=== PATIENT | male | born 1995 | race American Indian/Alaskan Native ===

== ENCOUNTER 2018-12-04 17:23 | Emergency (ER) | payer SELFPAY | END 2018-12-04 17:28 | disposition left against medical advice (07) | LOC: ED 17:23 | DX: M54.9 Dorsalgia, unspecified (principal); Z53.21 Procedure and treatment not carried out due to patient leaving prior to being seen by health care provider ==

== ENCOUNTER 2019-12-01 09:26 | Inpatient (IN) | payer OTHER ==
[2019-12-01 10:25] LABS: Basophils % (Auto) 0.5 % (0.0-1.8); Eosinophils # (Auto) 0.1 K/mm3 (0.0-0.4); Eosinophils % (Auto) 2.1 % (0.0-4.3); Hematocrit 42.7 % (35.5-45.6); Hemoglobin 13.9 gm/dl (11.8-15.2); Lymphocytes # (Auto) 1.4 K/mm3 (1.2-5.4); Lymphocytes % (Auto) 34.4 % (13.4-35.0); Mean Corpuscular HGB Conc 33 % (32-34); Mean Corpuscular Volume 82 fl (84-94); Monocytes # (Auto) 0.3 K/mm3 (0.0-0.8); Monocytes % (Auto) 7.8 % (0.0-7.3); Platelet Count 213 K/mm3 (140-440); Red Blood Count 5.21 M/mm3 (3.65-5.03); Red Cell Distribution Width 14.6 % (13.2-15.2)
[2019-12-01 10:44] LABS: Alanine Aminotransferase 8 units/L (7-56); Albumin 4.8 g/dL (3.9-5); BUN/Creatinine Ratio 10; Blood Urea Nitrogen 8 mg/dL (9-20); Calcium 9.9 mg/dL (8.4-10.2); Hemolysis Index 10
--- NOTE | 2019-12-01 10:52 | XRay Report ---
CHEST 1 VIEW 12/01/2019 9:43 AM INDICATION / CLINICAL INFORMATION: Cough. COMPARISON: None available. FINDINGS: SUPPORT DEVICES: None. HEART / MEDIASTINUM: No significant abnormality. LUNGS / PLEURA: There is a large right pneumothorax without significant mediastinal shift. Left lung appears clear. ADDITIONAL FINDINGS: No significant additional findings. IMPRESSION: 1. Large right pneumothorax. Critical result: Findings discussed with Ewa Cheema at 9:47 AM central time on 12/01/2019. Signer Name: Francisco York MD Signed: 12/01/2019 10:47 AM Workstation Name: [id number]
--- NOTE | 2019-12-01 11:00 | Emergency Department Report ---
ED Chest Pain HPI - General Chief Complaint: Dyspnea/Respdistress Stated Complaint: SOB/LOW O2 SAT Time Seen by Provider: 12/01/19 10:57 Source: patient Mode of arrival: Ambulatory Limitations: No Limitations - History of Present Illness Initial Comments: Mr. Guan is a healthy 24-year-old male without significant past medical history with exception of tobacco and marijuana use who presents with sudden shortness of breath 8:00 this morning. He has right-sided chest pain. Shortness of breath. Moderate pain. MD Complaint: chest pain, other (Severe shortness of breath) -: Sudden Onset: during rest Pain Location: right chest Severity: severe Quality: aching Consistency: constant Improves With: nothing Worsens With: inspiration - Related Data Allergies Allergy/AdvReac Type Severity Reaction Status Date / Time No Known Allergies Allergy Verified 12/04/18 17:26 Heart Score - HEART Score History: Slightly suspicious EKG: Normal Age: < 45 Risk factors: No known risk factors Troponin: < normal limit HEART Score: 0 ED Review of Systems ROS: Stated complaint: SOB/LOW O2 SAT Other details as noted in HPI Comment: All other systems reviewed and negative Respiratory: shortness of breath Cardiovascular: chest pain ED Past Medical Hx - Past Medical History Previous Medical History?: No - Surgical History Past Surgical History?: No - Social History Smoking Status: Current Every Day Smoker Substance Use Type: Marijuana ED Physical Exam - General Limitations: No Limitations General appearance: alert, in no apparent distress - Head Head exam: Present: atraumatic, normocephalic - Eye Eye exam: Present: normal appearance - ENT ENT exam: Present: mucous membranes moist - Neck Neck exam: Present: normal inspection - Respiratory Respiratory exam: Present: decreased breath sounds (Decreased breath sounds on the right). Absent: wheezes, rales, rhonchi - Cardiovascular Cardiovascular Exam: Present: regular rate, normal rhythm, normal heart sounds. Absent: systolic murmur, diastolic murmur, rubs, gallop - GI/Abdominal GI/Abdominal exam: Present: soft, normal bowel sounds. Absent: distended, tenderness, guarding, rebound - Rectal Rectal exam: Present: deferred - Extremities Exam Extremities exam: Present: normal inspection - Back Exam Back exam: Present: normal inspection - Neurological Exam Neurological exam: Present: alert, oriented X3 - Psychiatric Psychiatric exam: Present: normal affect, normal mood - Skin Skin exam: Present: warm, dry, intact, normal color. Absent: rash ED Course Vital Signs 12/01/19 12/01/19 12/01/19 09:32 11:52 11:55 Temperature 97.9 F 98.2 F Pulse Rate 63 82 Respiratory 20 18 18 Rate Blood Pressure 129/77 Blood Pressure 144/87 [Right] O2 Sat by Pulse 97 100 Oximetry - Chest Tube Chest Tube Location: fifth interspace Chest Tube Procedure: betadine prep Anesthesia: 1% Lidocaine Volume Anesthetic (ccs): 10 Vasquez of Air Clarke: Yes Number of Attempts: 1 Tube Drainage: none Tube Sutured to Skin: Yes Post Procedure CXR?: Yes Progress: Patient provided written informed consent witnessed by nurse. Complication: apical catheter which was retracted. ED Medical Decision Making - Lab Data Result diagrams: 12/01/19 09:57 12/01/19 09:57 - Radiology Data Radiology results: report reviewed CT angios chest: No pulmonary embolism, airspace opacity in the right lower lobe linear consolidation along the major fissure pleural catheter is in the superiormost right apex no diet no aortic dissection, airspace opacity may represent reexpansion pulmonary edema or pneumonia - Medical Decision Making Mr. Guan presents with spontaneous pneumothorax treated with thoracostomy. CT angios reveals reexpansion pulmonary edema versus pneumonia. Antibiotics initiated in the emergency department. Consulted Dr. Ambriz general surgeon. Admitted to the hospital service. Critical care attestation.: If time is entered above; I have spent that time in minutes in the direct care of this critically ill patient, excluding procedure time. ED Disposition Clinical Impression: Spontaneous pneumothorax Disposition: - OP ADMIT IP TO THIS HOSP Is pt being admited?: Yes Does the pt Need Aspirin: No Condition: Stable
[2019-12-01] MEDS ORDERED: LIDOCAINE (1%) 10 MG/1 ML VIAL 20 ML MDV INFILTRATI ONE (11:08)
[2019-12-01] MEDS ORDERED: MORPHINE 4 MG/1 ML INJ IV ONE ×2 (11:32→11:45)
[2019-12-01] MEDS ORDERED: ONDANSETRON 4 MG/2 ML INJ IV ONE (11:32)
[2019-12-01] MEDS ORDERED: ONDANSETRON 4 MG/2 ML INJ ONE (11:33)
[2019-12-01] MEDS ORDERED: MORPHINE 4 MG/1 ML INJ ONE (11:33)
--- NOTE | 2019-12-01 11:43 | History and Physical Report ---
History of Present Illness Chief complaint: My chest hurts on the right side and it is hard to breathe History of present illness: 24 YO Male with Nicotine Dependence presents to ED for evaluation. Patient states that he was in his usual state of health at bedtime around 2230 hrs. Patient states that he awoke from sleep around 0800 hrs. this morning and experienced acute onset shortness of breath and right-sided pleuritic chest pain. Patient states that he felt "like I could not catch my breath". Patient transported to [facility] via private vehicle for further evaluation and care. Patient seen and evaluated in the emergency department. Lab and imaging studies reviewed. Patient underwent CTA of the chest as well as chest x-ray and was found to have a large right pneumothorax. A right-sided chest tube was placed in the emergency department. Surgery team consult placed. Patient admitted to medical floor for further evaluation and care due to high risk of pulmonary compensation. Patient denies fever, chills, palpitations, syncope, trauma, recent ill contacts. No prior admission for review. No medication listed for reconciliation at time of admission. Past History Past Medical History: No medical history, other (Reviewed) Past Surgical History: No surgical history, Other (Reviewed) Social history: single, smoking Family history: hypertension Medications and Allergies Allergies Allergy/AdvReac Type Severity Reaction Status Date / Time No Known Allergies Allergy Verified 12/04/18 17:26 Review of Systems Constitutional: no weight loss, no weight gain, no fever, no chills Ears, nose, mouth and throat: no ear pain, no ear discharge, no tinnitis, no decreased hearing, no nasal discharge Cardiovascular: no chest pain, no orthopnea, no palpitations, no rapid/irregular heart beat, no edema, no syncope Respiratory: no cough with sputum, no excessive sputum, no hemoptysis, no shortness of breath Gastrointestinal: no abdominal pain, no nausea, no vomiting, no diarrhea, no constipation Genitourinary Male: no dysuria, no hematuria, no flank pain, no discharge, no urinary frequency Rectal: no pain, no incontinence, no bleeding Musculoskeletal: no neck stiffness, no neck pain, no shooting arm pain, no arm numbness/tingling, no low back pain Integumentary: no rash, no pruritis, no redness, no sores, no wounds Neurological: no head injury, no transient paralysis, no paralysis, no weakness, no numbness, no tingling Psychiatric: no anxiety, no memory loss, no change in sleep habits, no sleep disturbances, no insomnia, no hypersomnia, no change in appetite Endocrine: no cold intolerance, no heat intolerance, no polyphagia, no excessive thirst, no polydipsia, no polyuria, no excessive sweating Hematologic/Lymphatic: no easy bruising, no easy bleeding, no lymphadenopathy, no lymphedema Allergic/Immunologic: no urticaria, no allergic rhinitis, no anaphylaxis, no angioedema Exam - Constitutional Vitals: Temp Pulse Resp BP Pulse Ox 97.9 F 63 20 129/77 97 12/01/19 09:32 12/01/19 09:32 12/01/19 09:32 12/01/19 09:32 12/01/19 09:32 General appearance: Present: mild distress - EENT Eyes: Present: PERRL ENT: hearing intact, clear oral mucosa - Neck Neck: Present: supple, normal ROM - Respiratory Respiratory effort: normal Respiratory: right: diminished - Cardiovascular Heart Sounds: Present: S1 & S2. Absent: rub, click - Extremities Extremities: pulses symmetrical, No edema Peripheral Pulses: within normal limits - Abdominal General gastrointestinal: Present: soft, non-tender, non-distended, normal bowel sounds Male genitourinary: Present: normal - Integumentary Integumentary: Present: clear, warm, dry - Musculoskeletal Musculoskeletal: gait normal, strength equal bilaterally - Psychiatric Psychiatric: appropriate mood/affect, intact judgment & insight - Neurologic Neurologic: CNII-XII intact, moves all extremities Results - Labs CBC & Chem 7: 12/01/19 09:57 12/01/19 09:57 Labs: Abnormal lab results 12/01/19 12/01/19 Range/Units 09:57 09:57 WBC 4.1 L (4.5-11.0) K/mm3 RBC 5.21 H (3.65-5.03) M/mm3 MCV 82 L (84-94) fl MCH 27 L (28-32) pg [place] % (Auto) 7.8 H (0.0-7.3) % BUN 8 L (9-20) mg/dL Assessment and Plan - Patient Problems (1) Pneumothorax on right Current Visit: Yes Status: Acute Plan to address problem: Chest x-ray, CTA chest, right chest tube in place, surgery team consulted. (2) Nicotine dependence unspecified, with withdrawal Current Visit: Yes Status: Acute Qualifiers: Nicotine product type: cigarettes Qualified Code(s): F17.213 - Nicotine dependence, cigarettes, with withdrawal Plan to address problem: Smoking cessation counseling, behavior change counseling, supportive care. +15 minutes. (3) DVT prophylaxis Current Visit: Yes Status: Acute Plan to address problem: SCD to bilateral lower extremities while in bed patient is ambulatory.
--- NOTE | 2019-12-01 11:54 | XRay Report ---
CHEST 1 VIEW 12/01/2019 10:48 AM INDICATION / CLINICAL INFORMATION: Tube thoracostomy. COMPARISON: Chest x-ray done earlier on 12/01/2019 FINDINGS: SUPPORT DEVICES: Right chest tube has been placed. HEART / MEDIASTINUM: No significant abnormality. LUNGS / PLEURA: Right lung has reexpanded significantly, with only trace residual right pneumothorax. Left lung remains clear. ADDITIONAL FINDINGS: No significant additional findings. IMPRESSION: 1. Significant reexpansion of the right lung following right chest tube placement, with only trace re sidual pneumothorax. Signer Name: Francisco York MD Signed: 12/01/2019 11:50 AM Workstation Name: [id number]
[2019-12-01] MEDS ORDERED: ONDANSETRON 4 MG/2 ML INJ IV PRN (11:56)
[2019-12-01] MEDS ORDERED: ACETAMINOPHEN 325 MG TAB PO PRN (11:56)
[2019-12-01] MEDS ORDERED: HYDROmorphone 1 MG/1 ML INJ ONE (12:10)
--- NOTE | 2019-12-01 13:26 | Consultation ---
History of Present Illness Consult date: 12/01/19 Reason for consult: other (Chest pain shortness of breath) Chief complaint: Pneumothorax - History of present illness History of present illness: 24-year-old male with a past medical history of tobacco dependence who presents to the emergency room with acute onset right-sided chest pain and shortness of breath. He states that he was smoking a cigarette this morning, and all of a sudden had sharp right-sided chest pain which she has never experienced before. He states that this was associated with shortness of breath and so he presented to the hospital. In the emergency room, he was found to have a spontaneous right-sided pneumothorax on chest x-ray. A small bore chest tube was inserted by the ER physician with resolution of the pneumothorax on repeat chest x-ray. Surgery is consulted to manage the chest tube. At this time the patient states his pain is a 9 out of 10 in severity. The pain increased after chest tube insertion. His shortness of breath is improved. No fevers, chills, chest pain, shortness of breath. He denies trauma to the area. Past History Past Medical History: No medical history Past Surgical History: Other (Foot surgery) Social history: smoking (6 cigarettes a day and daily marijuana) Family history: no significant family history Medications and Allergies Allergies Allergy/AdvReac Type Severity Reaction Status Date / Time No Known Allergies Allergy Verified 12/04/18 17:26 Active Meds: Active Medications Acetaminophen (Tylenol) 650 mg PO Q4H PRN PRN Reason: Pain MILD(1-3)/Fever >100.5/YUAN Ondansetron HCl (Zofran) 4 mg IV Q8H PRN PRN Reason: Nausea And Vomiting Sodium Chloride (Sodium Chloride Flush Syringe 10 Ml) 10 ml IV BID CARLOS Sodium Chloride (Sodium Chloride Flush Syringe 10 Ml) 10 ml IV PRN PRN PRN Reason: LINE FLUSH Review of Systems All systems: negative (10 point review of systems was performed and negative except for that listed in HPI) Exam Vital Signs Temp Pulse Resp BP Pulse Ox 97.9 F 63 20 129/77 97 12/01/19 09:32 12/01/19 09:32 12/01/19 09:32 12/01/19 09:32 12/01/19 09:32 Narrative exam: Gen.: Awake, alert, oriented 3. No apparent distress ENT: No scleral icterus or conjunctival pallor CV: S1, S2 present Respiratory: Diminished breath sounds on the right. No wheezes, rales, rhonchi. There is a right-sided small bore chest tube in place with scant serosanguineous drainage in the tubing. The chest tube is set to -30 cm of water and on suction via Pleur-evac. There is no tidling or respiratory variation. There is no air leak present. The dressing is clean, dry, intact. No crepitus of the chest wall. Extremities: No clubbing, cyanosis, edema Results - Labs 12/01/19 09:57 12/01/19 09:57 Abnormal lab results 12/01/19 12/01/19 Range/Units 09:57 09:57 WBC 4.1 L (4.5-11.0) K/mm3 RBC 5.21 H (3.65-5.03) M/mm3 MCV 82 L (84-94) fl MCH 27 L (28-32) pg [place] % (Auto) 7.8 H (0.0-7.3) % BUN 8 L (9-20) mg/dL Diabetes panel 12/01/19 Range/Units 09:57 Sodium 138 (137-145) mmol/L Potassium 4.2 (3.6-5.0) mmol/L Chloride 102.1 (98-107) mmol/L Carbon Dioxide 22 (22-30) mmol/L BUN 8 L (9-20) mg/dL Creatinine 0.8 (0.8-1.5) mg/dL Glucose 87 (75-100) mg/dL Calcium 9.9 (8.4-10.2) mg/dL AST 14 (5-40) units/L ALT 8 (7-56) units/L Alkaline Phosphatase 108 (35-129) units/L Total Protein 7.5 (6.3-8.2) g/dL Albumin 4.8 (3.9-5) g/dL Calcium panel 12/01/19 Range/Units 09:57 Calcium 9.9 (8.4-10.2) mg/dL Albumin 4.8 (3.9-5) g/dL Pituitary panel 12/01/19 Range/Units 09:57 Sodium 138 (137-145) mmol/L Potassium 4.2 (3.6-5.0) mmol/L Chloride 102.1 (98-107) mmol/L Carbon Dioxide 22 (22-30) mmol/L BUN 8 L (9-20) mg/dL Creatinine 0.8 (0.8-1.5) mg/dL Glucose 87 (75-100) mg/dL Calcium 9.9 (8.4-10.2) mg/dL Adrenal panel 12/01/19 Range/Units 09:57 Sodium 138 (137-145) mmol/L Potassium 4.2 (3.6-5.0) mmol/L Chloride 102.1 (98-107) mmol/L Carbon Dioxide 22 (22-30) mmol/L BUN 8 L (9-20) mg/dL Creatinine 0.8 (0.8-1.5) mg/dL Glucose 87 (75-100) mg/dL Calcium 9.9 (8.4-10.2) mg/dL Total Bilirubin 0.50 (0.1-1.2) mg/dL AST 14 (5-40) units/L ALT 8 (7-56) units/L Alkaline Phosphatase 108 (35-129) units/L Total Protein 7.5 (6.3-8.2) g/dL Albumin 4.8 (3.9-5) g/dL - Imaging Chest x-ray: report reviewed, image reviewed CT scan - chest: report reviewed, image reviewed Assessment and Plan 24 yo M with R spontaneous PTX s/p chest tube in ER CXR 12/01/19 - R large PTX CXR 12/01/19 (s/p chest tube) - resolution of R PTX CT chest - right chest tube in place with re-expansion of right lung. Per radiology read, airspace opacities noted in the right lower lobe, could represent reexpansion pulmonary edema versus pneumonia. Plan: 1. Chest tube to -[id number] suction 2. prn pain control -Toradol IV and p.o. Buckner 3. incentive spirometry 10 times per hour 4. repeat CXR in am. 5. OOB/ambulate 6. supplemental O2 as needed 7. Smoking cessation discussed with patient The plan was discussed in great detail with the patient. Will follow-up in a.m. Thank you, please call with questions.
--- NOTE | 2019-12-01 13:38 | Cat Scan Report ---
CTA of the chest with 3D Reconstruction Indication: ,thoracostomy pain Technique: TECHNIQUE: Axial CT images were obtained through the chest after injection of 100 cc of Omnipaque 350 IV contrast. 3 plane MIP reconstructions were produced. All CT scans at this location are performed using CT dose reduction for ALARA by means of automated exposure control. COMPARISON: Chest radiograph performed earlier today Automatic exposure control was utilized in an attempt to reduce radiation dose. Findings: Pulmonary arteries: The main pulmonary artery and right and left pulmonary artery branches fill satis factorily with contrast. No pulmonary embolus is seen. Lungs: There is airspace opacity noted in the right lower lobe predominantly peripherally located. Th ere is some linear consolidation along the major fissure likely representing focal atelectasis there is airspace opacity noted in the right upper lobe adjacent to the minor fissure. There is some volume loss in the right upper lobe with elevation of the minor fissure. Right pleural catheter is noted th e tip is in the superior most right apex. There is very minimal residual pneumothorax with only a tra ce amount of pleural air on the right. The left lung is clear. Mediastinum: Heart size is normal. No adenopathy is seen. Aorta: Normal in diameter. No dissection seen within limits of this exam. There is subcutaneous air on the right Impression: Right pleural catheter is noted. There is no significant residual pneumothorax. Only a trace amount o f pleural air remains. There is some volume loss in the right upper lobe with airspace opacity along the minor fissure. Ther e is airspace opacity noted in the right lower lobe which likely represents reexpansion pulmonary radha ma but could represent pneumonia. Signer Name: Kushal Jameson MD Signed: 12/01/2019 1:34 PM Workstation Name: [id number]
[2019-12-01] MEDS ORDERED: levoFLOXacin 750 MG TAB PO STA (13:47)
[2019-12-01] MEDS ORDERED: levoFLOXacin 750 MG TAB ONE (14:19)
[2019-12-01 14:21] LABS: BUN/Creatinine Ratio 10; Blood Urea Nitrogen 8 mg/dL (9-20); Calcium 9.9 mg/dL (8.4-10.2); Hemolysis Index 10
[2019-12-01] MEDS ORDERED: HYDROcodone/ACETAMINOPHEN 5-325 MG TAB PO PRN (15:00)
[2019-12-01] MEDS: KETOROLAC 30 MG/1 ML INJ IV SCH (16:50)
[2019-12-01 17:32] LABS: Basophils % (Auto) 0.1 % (0.0-1.8); Eosinophils % (Auto) 0.3 % (0.0-4.3); Lymphocytes # (Auto) 1.6 K/mm3 (1.2-5.4); Lymphocytes % (Auto) 11.6 % (13.4-35.0); Mean Corpuscular HGB Conc 32 % (32-34); Mean Corpuscular Volume 82 fl (84-94); Monocytes # (Auto) 1.1 K/mm3 (0.0-0.8); Monocytes % (Auto) 7.8 % (0.0-7.3); Platelet Count 229 K/mm3 (140-440); Red Blood Count 5.34 M/mm3 (3.65-5.03); Red Cell Distribution Width 14.6 % (13.2-15.2)
[2019-12-01 17:55] LABS: INR 1.33 (0.87-1.13); Partial Thromboplastin Time 34.4 Sec. (24.2-36.6)
[2019-12-01] MEDS ORDERED: HYDROmorphone 2 MG/1 ML INJ IV ONE (18:05)
[2019-12-02] MEDS: KETOROLAC 30 MG/1 ML INJ IV SCH ×4 (01:35→11:32)
[2019-12-02 08:33] VITALS: BP 141/94
--- NOTE | 2019-12-02 09:14 | XRay Report ---
CHEST 1 VIEW INDICATION: R PTX. COMPARISON: Previous day. FINDINGS: Support devices: Removal of smallbore right-sided chest tube. No pneumothorax. Decreasing right subcu taneous air. Heart: Within normal limits. Lungs/Pleura: No acute air space or interstitial disease. Additional findings: None. IMPRESSION: No pneumothorax status post chest tube removal. Signer Name: Gomez Kaye MD Signed: 12/02/2019 9:09 AM Workstation Name: [id number]
--- NOTE | 2019-12-02 11:58 | Progress Note ---
Assessment and Plan 24 yo M with R spontaneous PTX s/p chest tube in ER CXR 12/01/19 - R large PTX CXR 12/01/19 (s/p chest tube) - resolution of R PTX CT chest - right chest tube in place with re-expansion of right lung. Per radiology read, airspace opacities noted in the right lower lobe, could represent reexpansion pulmonary edema versus pneumonia. CXR 12/02/2019 -resolution of pneumothorax. Chest tube located outside of right thorax, adjacent to the skin. Plan: 1. Chest tube was already pulled out for an unknown period of time. 7 A.m. chest x-ray showed no pneumothorax. Will repeat another chest x-ray now and if stable, the patient may be discharged home. 2. Patient may take [id number] pain control such as Tylenol or ibuprofen if needed upon discharge 3. incentive spirometry 10 reps, 3 times per day. I personally instructed the patient and educated him on the use of the incentive spirometer 4. OOB/ambulate 5. Smoking cessation discussed with patient again. I explained to the patient that if he continues to smoke cigarettes or marijuana, it is highly likely that he will experience another pneumothorax. I also advised him to avoid being in contact with secondhand smoke. If patient is discharged, he was instructed to return to the emergency room if he experiences recurrent right-sided chest pain and shortness of breath. Discussed with Dr. High and patient's RN Thank you, please call with questions. Subjective Date of service: 12/02/19 Narrative: Patient seen and examined. The patient was very agitated this morning stating that he wanted to go home. He is feeling better. He denies shortness of breath. His pain is much improved. No fevers, chills, chest pain. He has not been using his nasal cannula. Objective Vital Signs - 12hr 12/02/19 12/02/19 12/02/19 04:00 04:22 07:39 Temperature 98.2 F Pulse Rate 58 L 44 L Pulse Rate [ Left Radial] Pulse Rate [ Right Radial] Respiratory 16 Rate Blood Pressure 118/65 O2 Sat by Pulse 100 100 Oximetry 12/02/19 12/02/19 12/02/19 07:43 10:38 11:32 Temperature 98.1 F Pulse Rate Pulse Rate [ 81 Left Radial] Pulse Rate [ 81 Right Radial] Respiratory 18 16 16 Rate Blood Pressure 141/94 O2 Sat by Pulse 97 Oximetry - General physical appearance Narrative Exam: General: Awake, alert, oriented x3. No apparent distress CV: S1, S2 present Respiratory: No audible wheezes. There is no chest wall crepitus on the right. The chest tube dressing was taken down and the chest tube was already completely out of the chest. There is a silk suture still present in the skin which was removed. A small occlusive dressing was applied. Extremities: No clubbing, cyanosis, edema - Labs 12/01/19 16:30 12/01/19 11:53 Diabetes panel 12/01/19 Range/Units 11:53 Sodium 138 (137-145) mmol/L Potassium 4.2 (3.6-5.0) mmol/L Chloride 102.1 (98-107) mmol/L Carbon Dioxide 22 (22-30) mmol/L BUN 8 L (9-20) mg/dL Creatinine 0.8 (0.8-1.5) mg/dL Glucose 87 (75-100) mg/dL Calcium 9.9 (8.4-10.2) mg/dL Calcium panel 12/01/19 Range/Units 11:53 Calcium 9.9 (8.4-10.2) mg/dL Pituitary panel 12/01/19 Range/Units 11:53 Sodium 138 (137-145) mmol/L Potassium 4.2 (3.6-5.0) mmol/L Chloride 102.1 (98-107) mmol/L Carbon Dioxide 22 (22-30) mmol/L BUN 8 L (9-20) mg/dL Creatinine 0.8 (0.8-1.5) mg/dL Glucose 87 (75-100) mg/dL Calcium 9.9 (8.4-10.2) mg/dL Adrenal panel 12/01/19 Range/Units 11:53 Sodium 138 (137-145) mmol/L Potassium 4.2 (3.6-5.0) mmol/L Chloride 102.1 (98-107) mmol/L Carbon Dioxide 22 (22-30) mmol/L BUN 8 L (9-20) mg/dL Creatinine 0.8 (0.8-1.5) mg/dL Glucose 87 (75-100) mg/dL Calcium 9.9 (8.4-10.2) mg/dL
--- NOTE | 2019-12-02 13:11 | XRay Report ---
CHEST 1 VIEW INDICATION: follow up SOB. COMPARISON: Earlier today FINDINGS: Support devices: Right-sided pleural catheter has been removed. Heart: Within normal limits. Lungs/Pleura: Small amount residual subcutaneous gas over the right chest wall extending to the neck. No appreciable pneumothorax identified. Clear lungs. Additional findings: None. IMPRESSION: 1. No significant pneumothorax identified. Stable residual right chest wall subcutaneous gas. Signer Name: Easton Resendiz MD Signed: 12/02/2019 1:07 PM Workstation Name: [id number]
--- NOTE | 2019-12-02 14:34 | Discharge Summary ---
Providers - Providers Date of Admission: 12/01/19 11:56 Attending physician: JOVANNY PALM 12/01/19 12:25 Consult to Physician [CONS] Stat Comment: Dr. Taylor spoke with Dr. Gama @ 1148 Consulting Provider: KLARISSA GAMA Physician Instructions: Reason For Exam: spontaneous pneumothorax thoracostomy management Primary care physician: INSTRUMENT AND CONTROL TECHNICIAN Hospitalization Condition: Stable Disposition: DC-30 STILL A PATIENT - Discharge Diagnoses (1) Pneumothorax on right Status: Acute (2) Nicotine dependence unspecified, with withdrawal Status: Acute Qualifiers: Nicotine product type: cigarettes Qualified Code(s): F17.213 - Nicotine dependence, cigarettes, with withdrawal (3) DVT prophylaxis Status: Acute Exam - Constitutional Vitals: Temp Pulse Resp BP Pulse Ox 98.1 F 81 16 141/94 97 12/02/19 07:43 12/02/19 10:38 12/02/19 11:32 12/02/19 07:43 12/02/19 10:38 Plan Follow up with: WILLY ALLEN MD [Primary Care Provider] - 3-5 Days
== END 2019-12-02 16:25 | disposition home or self-care (01) | DRG 201 ==
LOC: ED 09:26 → 4A 11:56
PROVIDERS: ADMIT Internal Medicine; ATTEND Internal Medicine
PROC: 0W9930Z Drainage of Right Pleural Cavity with Drainage Device, Percutaneous Approach (ICD-10-PCS; principal; 2019-12-01)
DX: J93.83 Other pneumothorax (principal); F17.210 Nicotine dependence, cigarettes, uncomplicated; Z71.3 Dietary counseling and surveillance; Z79.899 Other long term (current) drug therapy; Z68.23 Body mass index [BMI] 23.0-23.9, adult
CPT/HCPCS: 36415; 71045; 71275; 80048; 80053; 82805; 85025; 85610; 85730; 94760; 99406; G0378; J1170; J1885; J2270; J2405; Q9967